=== PATIENT | female | born 1950 | race Two or more races ===

== ENCOUNTER 2020-09-09 06:17 | Emergency (ER) | payer OTHER ==
[~2020-09-09] VITALS: Ht 157.5 cm; Wt 81.6 kg
[2020-09-09] MEDS ORDERED: LOSARTAN-HCTZ1 EAC2 (06:37)
[2020-09-09] MEDS ORDERED: PRILOSEC OTC20 MG (06:37)
[2020-09-09] MEDS ORDERED: CRESTOR20 MG (06:37)
[2020-09-09] MEDS ORDERED: NORVASC10 MG (06:37)
[2020-09-09] MEDS ORDERED: PEPCID AC20 MG (06:38)
[2020-09-09] MEDS ORDERED: SINGULAIR10 MG (06:38)
[2020-09-09] MEDS ORDERED: TRICOR48 MG (06:38)
== END 2020-09-09 10:20 | disposition home or self-care (01) ==
LOC: ER 06:17
DX: L03.116 Cellulitis of left lower limb (principal); Z03.818 Encounter for observation for suspected exposure to other biological agents ruled out